=== PATIENT | female | born 2000 | race Caucasian/White ===

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

== ENCOUNTER 2021-05-16 19:58 | Inpatient (IN) | payer BC, OTHER ==
[~2021-05-16] VITALS: Ht 165.1 cm; Wt 119.5 kg
[2021-05-16] MEDS ORDERED: PRENATAL TABLE1 EAC2 (20:52)
[2021-05-16 21:13] LABS: BASOPHILS ABSOLUTE AUTO 0.02 K/mm3 (0.00-0.23); BASOPHILS PERCENT AUTO 0 % (0-2); EOSINOPHILS ABSOLUTE AUTO 0.06 K/mm3 (0.00-0.68); EOSINOPHILS PERCENT AUTO 1 % (0-6); Hematocrit 35.8 % (33.0-51.0); IMMATURE GRAN ABSOLUTE AUTO 0.05 K/mm3 (0.00-0.10); IMMATURE GRAN PERCENT AUTO 1 % (0-1); LYMPHOCYTES ABSOLUTE AUTO 1.72 K/mm3 (0.84-5.20); LYMPHOCYTES PERCENT AUTO 16 % (21-46); MONOCYTES ABSOLUTE AUTO 0.74 K/mm3 (0.16-1.47); MONOCYTES PERCENT AUTO 7 % (4-13); Mean Corpuscular HGB 27.4 pg (26.0-34.0); Mean Corpuscular HGB Conc 33.5 g/dL (31.5-36.5); Mean Corpuscular Volume 82 fL (80-100); Mean Platelet Volume 11.5 fL (9.1-12.4); NEUTROPHILS ABSOLUTE AUTO 8.21 K/mm3 (1.96-9.15); NEUTROPHILS PERCENT AUTO 76 % (41-73); Platelet Count 249 K/mm3 (150-400); RDW Coefficient Variation 14.2 % (11.7-14.2); RDW Standard Deviation 41.4 fL (35.1-46.3); Red Blood Cell Count 4.38 M/mm3 (3.80-5.20)
[2021-05-16 21:25] LABS: Influenza A, PCR NEGATIVE (NEGATIVE); Influenza B, PCR NEGATIVE (NEGATIVE); Resp Syncytial Virus, PCR NEGATIVE (NEGATIVE); SARS-Cov-2 (COVID-19) PCR, MMC NEGATIVE (NEGATIVE)
[2021-05-17] MEDS ORDERED: Lamictal100 MG PO (08:35)
[2021-05-18 05:47] LABS: Hematocrit 28.1 % (33.0-51.0); Hemoglobin 9.4 g/dL (11.5-16.0); Mean Corpuscular HGB 27.6 pg (26.0-34.0); Mean Corpuscular HGB Conc 33.5 g/dL (31.5-36.5); Mean Corpuscular Volume 82 fL (80-100); Mean Platelet Volume 11.1 fL (9.1-12.4); Platelet Count 200 K/mm3 (150-400); RDW Coefficient Variation 14.6 % (11.7-14.2); RDW Standard Deviation 43.2 fL (35.1-46.3); Red Blood Cell Count 3.41 M/mm3 (3.80-5.20); White Blood Cell Count 14.73 K/mm3 (4.00-11.30)
== END 2021-05-18 15:40 | disposition home or self-care (01) | DRG 806 ==
LOC: OBS 19:58 → BC 20:08
PROVIDERS: ADMIT Advanced Practice Midwife
PROC: 10E0XZZ Delivery of Products of Conception, External Approach (ICD-10-PCS; principal; 2021-05-17)
PROC: 3E033VJ Introduction of Other Hormone into Peripheral Vein, Percutaneous Approach (ICD-10-PCS; 2021-05-17)
PROC: 3E0P7VZ Introduction of Hormone into Female Reproductive, Via Natural or Artificial Opening (ICD-10-PCS; 2021-05-17)
PROC: 10907ZC Drainage of Amniotic Fluid, Therapeutic from Products of Conception, Via Natural or Artificial Opening (ICD-10-PCS; 2021-05-17)
PROC: 00HU33Z Insertion of Infusion Device into Spinal Canal, Percutaneous Approach (ICD-10-PCS; 2021-05-17)
PROC: 3E0R3BZ Introduction of Anesthetic Agent into Spinal Canal, Percutaneous Approach (ICD-10-PCS; 2021-05-17)
PROC: 10H07YZ Insertion of Other Device into Products of Conception, Via Natural or Artificial Opening (ICD-10-PCS; 2021-05-17)
PROC: 0HQ9XZZ Repair Perineum Skin, External Approach (ICD-10-PCS; 2021-05-17)
PROC: 3E0234Z Introduction of Serum, Toxoid and Vaccine into Muscle, Percutaneous Approach (ICD-10-PCS; 2021-05-17)
DX: O13.4 Gestational [pregnancy-induced] hypertension without significant proteinuria, complicating childbirth (principal); D62 Acute posthemorrhagic anemia; Z37.0 Single live birth; Z3A.39 39 weeks gestation of pregnancy; Z67.40 Type O blood, Rh positive; O99.03 Anemia complicating the puerperium; Z20.822 Contact with and (suspected) exposure to COVID-19; O70.0 First degree perineal laceration during delivery; Z23 Encounter for immunization
CPT/HCPCS: 0241U; 36415; 51702; 85025; 85027; 86850; 86900; 86901; 90471; 90715; A9270; J1885; J2001; J2405; J2590; J3010; J7120

== ENCOUNTER 2021-11-19 17:45 | Emergency (ER) | payer BC, OTHER ==
[~2021-11-19] VITALS: Ht 165.1 cm; Wt 104.3 kg
[~2021-11-19 17:45] MED LIST changes: +Lamictal100 MG PO; +PRENATAL TABLE1 EAC2
[2021-11-19 21:32] LABS: BASOPHILS ABSOLUTE AUTO 0.02 K/mm3 (0.00-0.23); BASOPHILS PERCENT AUTO 0 % (0-2); EOSINOPHILS ABSOLUTE AUTO 0.07 K/mm3 (0.00-0.68); EOSINOPHILS PERCENT AUTO 1 % (0-6); Hematocrit 39.3 % (33.0-51.0); Hemoglobin 12.9 g/dL (11.5-16.0); IMMATURE GRAN ABSOLUTE AUTO 0.02 K/mm3 (0.00-0.10); IMMATURE GRAN PERCENT AUTO 0 % (0-1); LYMPHOCYTES ABSOLUTE AUTO 2.24 K/mm3 (0.84-5.20); LYMPHOCYTES PERCENT AUTO 21 % (21-46); MONOCYTES ABSOLUTE AUTO 0.58 K/mm3 (0.16-1.47); MONOCYTES PERCENT AUTO 5 % (4-13); Mean Corpuscular HGB Conc 32.8 g/dL (31.5-36.5); Mean Corpuscular Volume 79 fL (80-100); Mean Platelet Volume 10.5 fL (9.1-12.4); NEUTROPHILS ABSOLUTE AUTO 7.91 K/mm3 (1.96-9.15); NEUTROPHILS PERCENT AUTO 73 % (41-73); Platelet Count 349 K/mm3 (150-400); RDW Coefficient Variation 14.6 % (11.7-14.2); RDW Standard Deviation 41.5 fL (35.1-46.3); Red Blood Cell Count 4.97 M/mm3 (3.80-5.20); White Blood Cell Count 10.84 K/mm3 (4.00-11.30)
[2021-11-19 21:52] LABS: Albumin, Blood 3.7 g/dL (3.4-5.0); Albumin/Globulin Ratio 0.9 (0.8-1.8); Bilirubin, Total 0.8 mg/dL (0.1-1.0); Bun/Creatinine Ratio 10.7 (12.0-20.0); Calcium, Blood 9.2 mg/dL (8.5-10.1); Creatinine, Blood 0.75 mg/dL (0.40-1.00); Globulin, Blood 4.3 g/dL (2.2-4.0); Potassium, Blood 4.7 mmol/L (3.5-5.5)
[2021-11-19] MEDS ORDERED: ZEBUTAL 50-3251 EAC1 PO ×2 (22:21→22:22)
== END 2021-11-19 22:39 | disposition home or self-care (01) ==
LOC: ER 17:45
PROVIDERS: Physician Assistant
DX: R51.9 Headache, unspecified (principal); Z79.899 Other long term (current) drug therapy
CPT/HCPCS: 36415; 80053; 85025; J0780; J1200; J1885; J7030

== ENCOUNTER 2022-04-10 21:20 | Emergency (ER) | payer BC, OTHER ==
[~2022-04-10] VITALS: Ht 172.7 cm; Wt 104.3 kg
[~2022-04-10 21:20] MED LIST changes: +ZEBUTAL 50-3251 EAC1 PO
== END 2022-04-10 21:46 | disposition home or self-care (01) ==
LOC: ER 21:20
DX: H92.02 Otalgia, left ear (principal); Z79.899 Other long term (current) drug therapy
CPT/HCPCS: A9270

== ENCOUNTER 2023-03-05 12:51 | Emergency (ER) | payer OTHER ==
[~2023-03-05] VITALS: Ht 167.6 cm; Wt 106.6 kg
[2023-03-05 14:59] VITALS: BP 125/74
== END 2023-03-05 15:11 | disposition home or self-care (01) ==
LOC: ER 12:51
DX: O99.891 Other specified diseases and conditions complicating pregnancy (principal); R60.0 Localized edema; Z3A.01 Less than 8 weeks gestation of pregnancy
CPT/HCPCS: 93005; 93010; 93971; 99283-25

== ENCOUNTER → 2023-10-01 | Outpatient (CLI) | payer BC, OTHER | LOC: LAB SHORT 10:57 → LAB 10:57 | DX: O99.213 Obesity complicating pregnancy, third trimester (principal); E66.8 Other obesity | CPT/HCPCS: 87081; 87150 ==

== ENCOUNTER → 2024-03-08 | Outpatient (CLI) | payer BC, OTHER ==
[2024-03-11 01:46] LABS: APTIMA MEDIA TYPE Urine; C. TRACHOMATIS BY TMA Negative (Negative); N. GONORRHOEAE BY TMA Negative (Negative); SPECIMEN SOURCE Urine
== END ==
LOC: LAB 10:22 → LAB SHORT 10:22
PROVIDERS: Obstetrics & Gynecology
DX: Z30.017 Encounter for initial prescription of implantable subdermal contraceptive (principal)
CPT/HCPCS: 87491; 87591